=== PATIENT | female | born 1995 | race Caucasian/White ===

== ENCOUNTER 2017-02-12 20:17 | Emergency (ER) | payer OTHER ==
[2017-02-12] MEDS ORDERED: RX INFO: IV CONTRAST WAS GIVEN 1 EACH MISC MISCELLANE PRN (21:51)
[2017-02-12] MEDS ORDERED: KETOROLAC 30 MG/ML 1 ML VIAL IVP STA (21:52)
[2017-02-12] MEDS ORDERED: ACETAMINOPHEN TAB 500 MG TAB PO STA (21:52)
[2017-02-12] MEDS ORDERED: ONDANSETRON 4 MG/2 ML VIAL IVP STA (21:52)
[2017-02-12 21:59] LABS: Appearance,Urine Cloudy (Clear); Bacteria,Urine Few /hpf; Bilirubin,Urine Negative (Negative); Blood,Urine Moderate (Negative); Color,Urine Light Yellow; Glucose,Urine (UA) Negative (Negative); Ketones,Urine Trace (Negative); Leukocyte Esterase,Urine Large (Negative); Mucus,Urine Rare /hpf; Nitrite,Urine Positive (Negative); Protein,Urine 1+ (Negative); RBC,Urine 9 /hpf (0-5); Specific Gravity,Urine 1.009 (1.001-1.035); Squamous Epithelial Cell,Urine 1 /hpf (0-4); Urobilinogen,Urine <2.0 mg/dL (<2.0); WBC,Urine 59 /hpf (0-5)
[2017-02-12] MEDS ORDERED: cefTRIAXone IN SWFI 1,000 MG/10 ML SYRINGE IVP STA (22:17)
[2017-02-12] MEDS ORDERED: cefTRIAXone IN SWFI 2,000 MG/20 ML SYRINGE IVP STA (22:18)
[2017-02-12 22:19] LABS: Basophils # (A) 0.1 k/uL (0-0.2); Basophils % (A) 1 %; Eosinophils # (A) 0.2 k/uL (0-0.7); Eosinophils % (A) 2 %; HCT 44.4 % (34.0-46.0); HGB 15.2 gm/dL (11.4-16.0); Lymphocytes # (A) 1.8 k/uL (1.0-4.8); Lymphocytes % (A) 13 %; MCH 31.8 pg (25.0-35.0); MCHC 34.3 g/dL (31.0-37.0); MCV 92.8 fL (80.0-100.0); Mean Platelet Volume 7.4; Monocytes # (A) 0.6 k/uL (0-1.0); Monocytes % (A) 4 %; Neutrophils # (A) 10.8 k/uL (1.3-7.7); Neutrophils % (A) 80 %; Platelet Count 213 k/uL (150-450); RBC 4.79 m/uL (3.80-5.40); RDW 13.1 % (11.5-15.5); WBC 13.5 k/uL (4.0-11.0)
[2017-02-12 22:27] LABS: ALT 56 U/L (9-52); AST 75 U/L (14-36); Albumin 4.7 g/dL (3.5-5.0); Alkaline Phosphatase 67 U/L (38-126); Amylase 54 U/L (30-110); Anion Gap 10 mmol/L; Blood Urea Nitrogen 14 mg/dL (7-17); Calcium 10.4 mg/dL (8.4-10.2); Carbon Dioxide 27 mmol/L (22-30); Chloride 101 mmol/L (98-107); Glucose 91 mg/dL (74-99); Lipase 92 U/L (23-300); Potassium 4.2 mmol/L (3.5-5.1); Sodium 138 mmol/L (137-145); Total Bilirubin 0.6 mg/dL (0.2-1.3); Total Protein 7.8 g/dL (6.3-8.2)
--- NOTE | 2017-02-12 22:42 | CT ---
EXAMINATION TYPE: CT abdomen pelvis w con DATE OF EXAM: 02/12/2017 COMPARISON: 04/01/2015 HISTORY: Left lower quadrant pain and fever x [address] DLP: 306.50 mGycm Automated exposure control for dose reduction was used. TECHNIQUE: Helical acquisition of images was performed from the lung bases through the pelvis. CONTRAST: Performed without Oral Contrast and with IV Contrast, patient injected with 100 mL of Omnipaque 300. FINDINGS: Lung bases are clear. There is no pleural effusion. Liver spleen pancreas gallbladder appear normal. Bile ducts are not dilated. There is no adrenal mass. Kidneys show satisfactory contrast opacification. There is no hydronephrosi s. There is no retroperitoneal adenopathy. There is no ascites. I see no intestinal wall thickening. There are no dilated loops. Appendix appears normal. There is a small amount of free fluid in the cul -de-sac. There is no evidence of a pelvic mass. Uterus is anteverted. Bladder distends smoothly. I se e no bony destructive process. IMPRESSION: MILD FREE FLUID IN THE CUL-DE-SAC IS NEW COMPARED TO OLD EXAM. THERE IS CLEARING OF A LARGE RIGHT ADNEXAL PELVIC CYST COMPARED TO OLD EXAM. NORMAL APPENDIX.
--- NOTE | 2017-02-13 00:11 | ED ---
Abdominal Pain HPI - General Chief Complaint: Abdominal Pain Stated Complaint: lt side pain Time Seen by Provider: 02/12/17 21:35 Source: patient, RN notes reviewed, old records reviewed Mode of arrival: ambulatory Limitations: no limitations - History of Present Illness Initial Comments: Patient is a 21 year old female with CC of dysuria for the past 2 days, and reports that she took AZO pills. She reports that she has a fever, chills, and left side pain. She denies any vomiting. She states that the pain radiates to her left side and back. She denies any history of STD or vaginal discharge. - Related Data Home Medications Medication Instructions Recorded Confirmed Ibuprofen [Motrin] 400 mg PO Q8HR PRN 02/12/17 02/12/17 Previous Rx's Medication Instructions Recorded Ciprofloxacin HCl [Cipro] 500 mg PO Q12HR #20 tablet 02/13/17 Phenazopyridine [Pyridium] 100 mg PO TID #9 tablet 02/13/17 Allergies Allergy/AdvReac Type Severity Reaction Status Date / Time No Known Allergies Allergy Verified 04/01/15 00:32 Review of Systems ROS Statement: Those systems with pertinent positive or pertinent negative responses have been documented in the HPI. ROS Other: All systems not noted in ROS Statement are negative. Past Medical History Past Medical History: No Reported History History of Any Multi-Drug Resistant Organisms: None Reported Past Surgical History: Tonsillectomy Past Psychological History: Anxiety Smoking Status: Never smoker Past Alcohol Use History: Occasional Past Drug Use History: None Reported General Exam - General Exam Comments Initial Comments: This is a 21 year old female, no distress. Limitations: no limitations General appearance: alert, in no apparent distress Head exam: Present: atraumatic, normocephalic, normal inspection Eye exam: Present: normal appearance, PERRL, EOMI. Absent: scleral icterus, conjunctival injection, periorbital swelling ENT exam: Present: normal exam, mucous membranes moist Neck exam: Present: normal inspection. Absent: tenderness, meningismus, lymphadenopathy Respiratory exam: Present: normal lung sounds bilaterally. Absent: respiratory distress, wheezes, rales, rhonchi, stridor Cardiovascular Exam: Present: regular rate, normal rhythm, normal heart sounds. Absent: systolic murmur, diastolic murmur, rubs, gallop, clicks GI/Abdominal exam: Present: soft, normal bowel sounds. Absent: distended, tenderness, guarding, rebound, rigid Extremities exam: Present: normal inspection, full ROM, normal capillary refill. Absent: tenderness, pedal edema, joint swelling, calf tenderness Back exam: Present: normal inspection, CVA tenderness (L) (Patient has significant Left CVA tenderness) Neurological exam: Present: alert, oriented X3, CN II-XII intact Psychiatric exam: Present: normal affect, normal mood Skin exam: Present: warm, dry, intact, normal color. Absent: rash Course Vital Signs 02/12/17 02/12/17 02/13/17 20:29 22:37 00:17 Temperature 100.4 F H 98.8 F Pulse Rate 120 H 98 89 Respiratory 18 18 16 Rate Blood Pressure 132/67 111/56 O2 Sat by Pulse 100 99 98 Oximetry Medical Decision Making - Medical Decision Making This is a 21 year old female with CC of left CVA tenderness and dysuria for 2 days. Patient urinalysis is positibe for infection. Patient has minimally elevated WBC. Patient arrived with fever, and was given motrin and tylenol. Patient given 2L of fluids and is feeling better. CT abdomen and pelvis was normal. no acute abnormalities. Patient urine will be cultured. With CVA tenderness, UTI I will treat patient for pyelonephritis. Started on Cipro and pyridium. Patient advised to follow up with PCP. Return parameters discussed. - Lab Data Result diagrams: 02/12/17 22:04 02/12/17 22:04 Lab Results 02/12/17 02/12/17 02/12/17 Range/Units 21:44 21:44 22:04 WBC (4.0-11.0) k/uL RBC (3.80-5.40) m/uL Hgb (11.4-16.0) gm/dL Hct (34.0-46.0) % MCV (80.0-100.0) fL MCH (25.0-35.0) pg MCHC (31.0-37.0) g/dL RDW (11.5-15.5) % Plt Count (150-450) k/uL Neutrophils % % Lymphocytes % % Monocytes % % Eosinophils % % Basophils % % Neutrophils # (1.3-7.7) k/uL Lymphocytes # (1.0-4.8) k/uL Monocytes # (0-1.0) k/uL Eosinophils # (0-0.7) k/uL Basophils # (0-0.2) k/uL Sodium 138 (137-145) mmol/L Potassium 4.2 (3.5-5.1) mmol/L Chloride 101 (98-107) mmol/L Carbon Dioxide 27 (22-30) mmol/L Anion Gap 10 mmol/L BUN 14 (7-17) mg/dL Creatinine 0.78 (0.52-1.04) mg/dL Est GFR (MDRD) Af Amer >60 (>60 ml/min/1.73 sqM) Est GFR (MDRD) Non-Af >60 (>60 ml/min/1.73 sqM) Glucose 91 (74-99) mg/dL Calcium 10.4 H (8.4-10.2) mg/dL Total Bilirubin 0.6 (0.2-1.3) mg/dL AST 75 H (14-36) U/L ALT 56 H (9-52) U/L Alkaline Phosphatase 67 (38-126) U/L Total Protein 7.8 (6.3-8.2) g/dL Albumin 4.7 (3.5-5.0) g/dL Amylase 54 (30-110) U/L Lipase 92 (23-300) U/L Urine Color Light Yellow Urine Appearance Cloudy H (Clear) Urine pH 7.0 (5.0-8.0) Ur Specific [place] 1.009 (1.001-1.035) Urine Protein 1+ H (Negative) Urine Glucose (UA) Negative (Negative) Urine Ketones Trace H (Negative) Urine Blood Moderate H (Negative) Urine Nitrite Positive H (Negative) Urine Bilirubin Negative (Negative) Urine Urobilinogen <2.0 (<2.0) mg/dL Ur Leukocyte Esterase Large H (Negative) Urine RBC 9 H (0-5) /hpf Urine WBC 59 H (0-5) /hpf Urine WBC Clumps Many H (None) /hpf Ur Squamous Epith Cells 1 (0-4) /hpf Urine Bacteria Few H (None) /hpf Urine Mucus Rare H (None) /hpf Urine HCG, Qual Not Detected (Not Detectd) 02/12/17 Range/Units 22:04 WBC 13.5 H (4.0-11.0) k/uL RBC 4.79 (3.80-5.40) m/uL Hgb 15.2 (11.4-16.0) gm/dL Hct 44.4 (34.0-46.0) % MCV 92.8 (80.0-100.0) fL MCH 31.8 (25.0-35.0) pg MCHC 34.3 (31.0-37.0) g/dL RDW 13.1 (11.5-15.5) % Plt Count 213 (150-450) k/uL Neutrophils % 80 % Lymphocytes % 13 % Monocytes % 4 % Eosinophils % 2 % Basophils % 1 % Neutrophils # 10.8 H (1.3-7.7) k/uL Lymphocytes # 1.8 (1.0-4.8) k/uL Monocytes # 0.6 (0-1.0) k/uL Eosinophils # 0.2 (0-0.7) k/uL Basophils # 0.1 (0-0.2) k/uL Sodium (137-145) mmol/L Potassium (3.5-5.1) mmol/L Chloride (98-107) mmol/L Carbon Dioxide (22-30) mmol/L Anion Gap mmol/L BUN (7-17) mg/dL Creatinine (0.52-1.04) mg/dL Est GFR (MDRD) Af Amer (>60 ml/min/1.73 sqM) Est GFR (MDRD) Non-Af (>60 ml/min/1.73 sqM) Glucose (74-99) mg/dL Calcium (8.4-10.2) mg/dL Total Bilirubin (0.2-1.3) mg/dL AST (14-36) U/L ALT (9-52) U/L Alkaline Phosphatase (38-126) U/L Total Protein (6.3-8.2) g/dL Albumin (3.5-5.0) g/dL Amylase (30-110) U/L Lipase (23-300) U/L Urine Color Urine Appearance (Clear) Urine pH (5.0-8.0) Ur Specific [place] (1.001-1.035) Urine Protein (Negative) Urine Glucose (UA) (Negative) Urine Ketones (Negative) Urine Blood (Negative) Urine Nitrite (Negative) Urine Bilirubin (Negative) Urine Urobilinogen (<2.0) mg/dL Ur Leukocyte Esterase (Negative) Urine RBC (0-5) /hpf Urine WBC (0-5) /hpf Urine WBC Clumps (None) /hpf Ur Squamous Epith Cells (0-4) /hpf Urine Bacteria (None) /hpf Urine Mucus (None) /hpf Urine HCG, Qual (Not Detectd) - Radiology Data Radiology results: report reviewed Mild free fluid in culdesac, no aother anbnormalities on CT. She has clearing of previous right ovarian cyst. Disposition Clinical Impression: Pyelonephritis Disposition: HOME SELF-CARE Condition: Good Instructions: Urinary Tract Infection in Women (ED) Additional Instructions: Patient needs to rest, increase fluid intake. Alternate Motrin and Tylenol. Follow-up with your primary care doctor on Wednesday. Completely antibiotic prescription. Return to the emergency department if any alarming signs or symptoms occur. Prescriptions: Ciprofloxacin HCl [Cipro] 500 mg PO Q12HR #20 tablet Phenazopyridine [Pyridium] 100 mg PO TID #9 tablet Referrals: Sunny Nelson III, MD [Primary Care Provider] - 1-2 days Time of Disposition: 00:10
[2017-02-13 00:18] VITALS: BP 111/56; PULSE 89; RESP 16; TEMP 98.8
== END 2017-02-13 00:18 | disposition home or self-care (01) ==
LOC: EC 20:17
DX: N12 Tubulo-interstitial nephritis, not specified as acute or chronic (principal)
CPT/HCPCS: 36415; 80053; 82150; 83690; 85025; 81001; 81025; 87040; 87086; 87077; 87186; 74177; 99284; 96374; 96375 ×2; J2405; J0696; J1885; Q9967

== ENCOUNTER 2017-11-27 16:50 | Emergency (ER) | payer OTHER ==
[2017-11-27 17:16] VITALS: BP 99/66; PULSE 95; RESP 18; TEMP 98.2
[2017-11-27] MEDS ORDERED: ONDANSETRON 4 MG ODT STARTER PACK 2 TAB BTL PO STA (18:11)
[2017-11-27] MEDS ORDERED: MECLIZINE 12.5 MG TAB PO STA (18:11)
--- NOTE | 2017-11-27 18:12 | ED ---
Head Injury HPI - General Chief complaint: Head Injury Stated complaint: Head injury Time Seen by Provider: 11/27/17 17:32 Source: patient, RN notes reviewed, old records reviewed Mode of arrival: ambulatory Limitations: no limitations - History of Present Illness Initial comments: This is a 22-year-old female presents or is relatively 3 days after hitting her head on a car door. Patient states that she's had intermittent dizziness and nauseousness at time. Also complains of sinus congestion. Patient states that today she felt like the room was spinning. Patient states she's had no actual episodes of vomiting. Patient states that she has had no previous head injuries or concussions. She denies any other symptoms. Patient reports that she hit the back of her head at that time. She states that things did go light for a moment. She denies any other significant complaints. Denies any significant headache at this time. - Related Data Home Medications Medication Instructions Recorded Confirmed Ibuprofen [Motrin] 400 mg PO Q8HR PRN 02/12/17 02/12/17 Previous Rx's Medication Instructions Recorded Ciprofloxacin HCl [Cipro] 500 mg PO Q12HR #20 tablet 02/13/17 Phenazopyridine [Pyridium] 100 mg PO TID #9 tablet 02/13/17 Meclizine [Antivert] 25 mg PO BID #20 tab 11/27/17 Ondansetron Odt [Zofran Odt] 4 mg PO Q8HR PRN #20 tab 11/27/17 Allergies/Adverse reactions: Allergies Allergy/AdvReac Type Severity Reaction Status Date / Time No Known Allergies Allergy Verified 11/27/17 17:16 Review of Systems ROS Statement: Those systems with pertinent positive or pertinent negative responses have been documented in the HPI. ROS Other: All systems not noted in ROS Statement are negative. Past Medical History Past Medical History: No Reported History History of Any Multi-Drug Resistant Organisms: None Reported Past Surgical History: Tonsillectomy Past Psychological History: Anxiety Smoking Status: Never smoker Past Alcohol Use History: Occasional Past Drug Use History: None Reported General Exam - General Exam Comments Initial Comments: Well-appearing 22-year-old female. Alert and oriented. No significant distress. Limitations: no limitations General appearance: alert, in no apparent distress Head exam: Present: atraumatic, normocephalic, normal inspection, other (Placed in a Patient of the posterior scalp. No evidence of hematoma.) Eye exam: Present: normal appearance, PERRL, EOMI. Absent: scleral icterus, conjunctival injection, periorbital swelling ENT exam: Present: normal exam, mucous membranes moist, TM's normal bilaterally (Slight effusion and right TM.), other (Patient is sinus congestion.) Neck exam: Present: normal inspection. Absent: tenderness, meningismus, lymphadenopathy Respiratory exam: Present: normal lung sounds bilaterally. Absent: respiratory distress, wheezes, rales, rhonchi, stridor Cardiovascular Exam: Present: regular rate, normal rhythm, normal heart sounds. Absent: systolic murmur, diastolic murmur, rubs, gallop, clicks GI/Abdominal exam: Present: soft, normal bowel sounds. Absent: distended, tenderness, guarding, rebound, rigid Extremities exam: Present: normal inspection, full ROM, normal capillary refill. Absent: tenderness, pedal edema, joint swelling, calf tenderness Back exam: Present: normal inspection Neurological exam: Present: alert, oriented X3, CN II-XII intact Expanded Patient oriented to: Present: person, place, time Speech: Present: fluid speech Cranial nerves: EOM's Intact: Normal Cerebellar function: Finger to Nose: Normal Psychiatric exam: Present: normal affect, normal mood Skin exam: Present: warm, dry, intact, normal color. Absent: rash Course Vital Signs 11/27/17 17:13 Temperature 98.2 F Pulse Rate 95 Respiratory 18 Rate Blood Pressure 99/66 O2 Sat by Pulse 99 Oximetry Medical Decision Making - Medical Decision Making 22-year-old feel presents return a 2 days post head injury. She states she had her head on the top of car. She's been having some dizziness spells as well as complaining of intermittent nausea. She's had no vomiting episodes per she is no focal or lateralizing neurological deficits. She otherwise appears well. Discussed that she is 2 days post injury, and is out of concern for any traumatic brain bleed injuries at this time. Patient's family and Patient agree. They discussed possibly doing a computed tomography scan of a degree that they can forego. Patient states that she's had no other symptoms. I will treat the Patient this time. Symptomatic concussion with nausea medication and Antivert. I discussed that she has close follow-up with primary care physician obvious there is any other concerning thinners and she should return here. Patient agrees to treatment plan will comply. Return parameters were discussed. Disposition Clinical Impression: Concussion Disposition: HOME SELF-CARE Condition: Good Instructions: Concussion (ED) Additional Instructions: Patient has follow-up with primary care provider. Return to the emergency department if any alarming signs or symptoms occur. Take medications as prescribed. Rest, remain hydrated. Prescriptions: Meclizine [Antivert] 25 mg PO BID #20 tab Ondansetron Odt [Zofran Odt] 4 mg PO Q8HR PRN #20 tab PRN Reason: Nausea Is patient prescribed a controlled substance at d/c from ED?: No Referrals: Sunny Nelson III, MD [Primary Care Provider] - 1-2 days Time of Disposition: 18:11
== END 2017-11-27 18:32 | disposition home or self-care (01) ==
LOC: EC 16:50
DX: S06.0X0A Concussion without loss of consciousness, initial encounter (principal); W22.8XXA Striking against or struck by other objects, initial encounter
CPT/HCPCS: 99283; S0119